=== PATIENT | male | born 1975 | race Two or more races ===

== ENCOUNTER 2017-05-16 19:15 | Emergency (ER) | payer SELFPAY ==
[~2017-05-16] VITALS: Ht 177.8 cm; Wt 95.3 kg
[2017-05-16] MEDS ORDERED: ACETAMINOPHEN 325 MG TABLET PO ONE (19:30)
[2017-05-16] MEDS ORDERED: ACETAMINOPHEN ES 500 MG TABLET ONE (19:44)
--- NOTE | 2017-05-16 20:35 | NUR ---
Patient discharged to home in stable conditon. Written and verbal after care instructions given. Patient verbalizes understanding of instructions. Ambulated from ER with stable gait. All belongings with patient.
[2017-05-16 20:40] VITALS: BP 130/78
== END 2017-05-16 20:40 | disposition home or self-care (01) ==
LOC: ER 19:15
DX: S06.0X0A Concussion without loss of consciousness, initial encounter (principal); F17.200 Nicotine dependence, unspecified, uncomplicated; W01.0XXA Fall on same level from slipping, tripping and stumbling without subsequent striking against object, initial encounter; Y92.89 Other specified places as the place of occurrence of the external cause; Y93.89 Activity, other specified; Y99.8 Other external cause status
CPT/HCPCS: 70450; A4663